=== PATIENT | female | born 1935 | race Caucasian/White ===

== ENCOUNTER → 2017-06-08 | Outpatient (CLI) | payer MEDICARE, OTHER ==
[~2017-06-08] MED LIST: ASPI81TA94 PO; CIPR-214 PO; DOCU-416 PO; FAMO20TA28 PO; FLUT16SP19 NS; HYDR-317 PO; HYDR-389 PO; IBUP-1671 PO; LISI20TA29 PO; METO-257 PO; METO25TA93 PO; NYST15CR32 TP; OSPE60TA2 PO; PANT40TA65 PO; PNEU0.5D3 IM; POLY17PO25 PO; TRI40I INTRA-ART
--- NOTE | 2017-06-08 09:39 | RADIOLOGY IMAGING REPORT ---
FACILITY: [facility] PATIENT NAME: Erin Montiel : 1935 MR: [id number] V: [id number] EXAM DATE: ORDERING PHYSICIAN: ELLI FARRELL TECHNOLOGIST: Location: [facility] - [place] Patient: Erin Montiel : 1935 Visit/Account:[id number] Date of Sevice: 06/08/2017 HEAD W/O CONTRAST Indication: headache Comparison: None. Technique: Noncontrast head CT vertex to the skull base obtained. One of the following dose optimizat ion techniques was utilized in the performance of this exam: automated exposure control; adjustment o f the mA and/or kV according to the patient's size; or use of an iterative reconstruction technique. Specific details can be referenced in the facility's radiology CT exam operational policy. Findings: Brain: Dawn-white matter differentiation and cortex are maintained. Confluent areas of decreased att enuation are seen throughout the white matter consistent with small vessel ischemic change. Ventricles and sulci: Ventricles and sulci are symmetrically prominent. There is no abnormal extra-a xial fluid collection. Paranasal sinuses:Visualized paranasal sinuses and mastoid air cells are clear. Calvarium:Bones of the skull and skull base are intact. Orbits and soft tissues: Right and left globes and soft tissues of the head are normal. Impression: 1. No evidence of infarct hemorrhage mass or fracture. 2. Age-related cerebral volume loss and small vessel ischemic change. Report Dictated By: Surjit Rod at 06/08/2017 9:31 AM Report E-Signed By: Surjit Rod at 06/08/2017 9:33 AM WSN:[email or web address]
[2017-06-08 09:45] LABS: PLATELET COUNT, AUTOMATED 249 K/uL (150-450)
== END ==
LOC: RAD 08:38
PROVIDERS: ATTEND Internal Medicine
DX: R51 Headache (principal); I10 Essential (primary) hypertension; E78.5 Hyperlipidemia, unspecified; R49.0 Dysphonia
CPT/HCPCS: 36415; 70450; 82040; 82247; 82310; 82374; 82435; 82565; 82947; 84075; 84132; 84155; 84295; 84443; 84450; 84460; 84520; 85025

== ENCOUNTER → 2017-06-22 | Outpatient (CLI) | payer MEDICARE, OTHER ==
--- NOTE | 2017-06-22 11:44 | RADIOLOGY IMAGING REPORT ---
[place] [facility] [place]: Erin Montiel : 1935 MR: [id number] V: [id number] EXAM DATE: ORDERING PHYSICIAN: ELLI FARRELL TECHNOLOGIST: Location: [facility] Patient: Erin Montiel : 1935 Visit/Account:[id number] Date of Sevice: 06/22/2017 KIDNEYS EXAMINATION: Renal ultrasound. History: Flank pain x1 week abnormal kidney function, frequent urination COMPARISON STUDIES: CT of the abdomen and pelvis September 25, 2015 FINDINGS: Kidneys: Right kidney- 8.9 x 4.5 x 4.3 cm Left kidney- 11.6 x 5.8 x 3.8 cm Uniform and symmetric blood flow in each kidney by Doppler ultrasound. Hydronephrosis: none Resistive index on the right 0.7 and on the left 0.7 Bladder: Prevoid bladder volume 166 mL. Post void residual 2 mL. I lateral ureteral jets are presen t Abdominal aorta and IVC: Aorta and IVC are patent by Doppler ultrasound. IMPRESSION: Unremarkable renal ultrasound Report Dictated By: Edie Alonzo MD at 06/22/2017 11:37 AM Report E-Signed By: Edie Alonzo MD at 06/22/2017 11:40 AM WSN:[email or web address]
== END ==
LOC: US 00:46
PROVIDERS: ATTEND Internal Medicine
DX: I10 Essential (primary) hypertension (principal); N28.9 Disorder of kidney and ureter, unspecified
CPT/HCPCS: 76705

== ENCOUNTER → 2017-08-24 | Outpatient (CLI) | payer MEDICARE, OTHER ==
[~2017-08-24] MED LIST changes: +DIPH-740 PO; +LEVO25TA61 PO; +PRED-420 PO; +RANI-366 PO
[2017-08-24 13:36] LABS: PLATELET COUNT, AUTOMATED 227 K/uL (150-450)
== END ==
LOC: LAB 13:02
PROVIDERS: ATTEND Internal Medicine
DX: I12.9 Hypertensive chronic kidney disease with stage 1 through stage 4 chronic kidney disease, or unspecified chronic kidney disease (principal); N18.3 Chronic kidney disease, stage 3 (moderate); E78.5 Hyperlipidemia, unspecified
CPT/HCPCS: 36415; 82040; 82247; 82310; 82374; 82435; 82465; 82565; 82947; 83718; 84075; 84132; 84155; 84295; 84443; 84450; 84460; 84478; 84520; 85025

== ENCOUNTER → 2017-09-13 | Outpatient (CLI) | payer MEDICARE, OTHER ==
[~2017-09-13] MED LIST changes: +HYDR-385 PO
[2017-09-13 10:40] LABS: PLATELET COUNT, AUTOMATED 238 K/uL (150-450)
== END ==
LOC: LAB 10:13
PROVIDERS: ATTEND Internal Medicine
DX: I12.9 Hypertensive chronic kidney disease with stage 1 through stage 4 chronic kidney disease, or unspecified chronic kidney disease (principal); N18.9 Chronic kidney disease, unspecified; N20.0 Calculus of kidney; N39.0 Urinary tract infection, site not specified
CPT/HCPCS: 36415; 81001; 82040; 82247; 82310; 82374; 82435; 82565; 82947; 84075; 84132; 84155; 84295; 84443; 84450; 84460; 84520; 85025

== ENCOUNTER → 2017-09-19 | Outpatient (CLI) | payer MEDICARE, OTHER ==
--- NOTE | 2017-09-19 13:17 | RADIOLOGY IMAGING REPORT ---
FACILITY: [facility] - [place] PATIENT NAME: Erin Montiel : 1935 MR: [id number] V: [id number] EXAM DATE: ORDERING PHYSICIAN: ELLI FARRELL TECHNOLOGIST: Location: [facility] - [place] Patient: Erin Montiel : 1935 Visit/Account:[id number] Date of Sevice: 09/19/2017 L SPINE W/O CONTRAST Provided history: L2 compression fracture Additional pertinent history: none TECHNIQUE: Multiplanar multisequence lumbar MRI was performed without intravenous contrast. COMPARISON STUDIES: No relevant priors FINDINGS: Segment numbering: Lumbosacral junction at L5-S1. No transitional segment. Extra-spinal soft tissues: Benign-appearing cyst medial midpole left kidney. Alignment: Normal Osseous signal pattern: Indistinct T2 hyperintensity parallels the upper L2 endplate with a central l inear hypointense line typical of a benign insufficiency fracture. Maximal compression is up to just over 20%. There is only minimal retropulsion of the posterior-superior L2 body without compromise o f the canal. Both sides of the fracture extends to the body and pedicle junction but there is no pro pagating fracture through the posterior elements. Additional indistinct T2 hyperintensity in the lower L3 or upper L4 body is probably degenerative in origin rather than due to acute compression. Distal thoracic cord / conus / cauda equina: negative Disc Spaces: Lower T spine: Mild degeneration without herniation or significant stenosis. L1-L2: The disk reveals mild narrowing and degeneration. No evidence of disk herniation or centra l stenosis No significant foraminal stenosis. L2-L3: There is an intravertebral herniation in the posterior-inferior L2 endplate but with preserva tion of adjacent marrow, likely old. Superimposed is a moderate size more right lateralizing disk-os teophyte complex that overall results in mild narrowing the central canal and conjunction with hypert rophy of the posterior elements. The foramina are only mildly narrowed by lateralizing osteophytes and mild facet hypertrophy. L3-L4: The disk reveals severe narrowing and degeneration. There is a prominent broad-based mo re left lateralizing disk-osteophyte complex. In conjunction with moderate hypertrophy of the chiropractor assistant ior elements, this results in severe compromise of the central canal with near extinguishing of CSF a t the level the disc. Lateralization of end-plate spurs and bilateral facet hypertrophy results in severe left and only mil d narrowing of the right foramen. The exiting left L3 nerve is displaced and deformed. L4-L5: The disk reveals moderate narrowing and degeneration. Mild symmetric broad based disc- osteophyte complex without herniation or significant central stenosis. Lateralization of end-plate spurs and bilateral facet hypertrophy results in mild narrowing of the fo ramina. L5-S1: The disk reveals moderate narrowing and degeneration. Mild symmetric broad based disc- osteophyte complex without herniation or central stenosis. Hypertrophic facets primarily responsible for displacement and deformity of both exiting L5 nerves ag ainst the inferior pedicles consistent with moderate- severe foraminal narrowing. IMPRESSION: 1. Acute 20% compression deformity of the L2 body with only minor retropulsion no compromise of the canal. 2. Multilevel degenerative changes are defined above. 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 3. Additional potentially significant bilateral L5-S1 foraminal narrowing. Report Dictated By: Santiago Cuba MD at 09/19/2017 1:01 PM Report E-Signed By: Santiago Cuba MD at 09/19/2017 1:13 PM WSN:[id number]
== END ==
LOC: MRI 02:03
PROVIDERS: ATTEND Internal Medicine
DX: M51.36 Other intervertebral disc degeneration, lumbar region (principal); M48.061 Spinal stenosis, lumbar region without neurogenic claudication
CPT/HCPCS: 72148

== ENCOUNTER 2017-09-25 01:42 | Day surgery (SDC) | payer MEDICARE, OTHER ==
[~2017-09-25] VITALS: Ht 160 cm; Wt 83.0 kg
[~2017-09-25 01:42] MED LIST changes: +ceFAZolin(*) 1 GM VIAL 1 GM in NS(*) 0.9% 100 ML ADDVANT BAG 100 ML IVPB ONE
--- NOTE | 2017-09-25 07:36 | EKG ---
FACILITY: [facility] PATIENT NAME: HALEY PRADHAN : [id number] MR: [id number] V: [id number] EXAM DATE: ORDERING PHYSICIAN: PERFECTO DELACRUZ TECHNOLOGIST: MOLLY Pérez Reason : PRE-OP Blood Pressure : / mmHG Vent. Rate : 067 BPM Atrial Rate : 067 BPM P-R Int : 142 ms QRS Dur : 072 ms QT Int : 400 ms P-R-T Axes : 059 027 024 degrees QTc Int : 422 ms Normal sinus rhythm Normal ECG No previous ECGs available Confirmed by KAMERON GREWAL ([id number]) on 09/25/2017 1:11:02 PM Referred By: MOHIT Confirmed By:KAMERON GREWAL
[2017-09-25 07:40] VITALS: BP 168/78
[2017-09-25] MEDS ORDERED: FAMOTIDINE 20 MG TAB PO ONE (07:40)
[2017-09-25] MEDS ORDERED: PROPOFOL EMUL(*) 10MG/ML 20 ML 20 ML ONE (07:46)
[2017-09-25] MEDS ORDERED: fentaNYL CITR 100 MCG/2 ML AMP ONE (07:46)
[2017-09-25] MEDS ORDERED: LIDOCAINE 2% IV 100 MG/5ML SYR ONE (07:46)
[2017-09-25] MEDS ORDERED: MIDAZOLAM 2 MG/2 ML VIAL IVP PRN (07:55)
[2017-09-25] MEDS ORDERED: NORMOSOL R SOLN(*) 1000 ML BAG 1,000 ML IV PRN (07:55)
[2017-09-25] MEDS ORDERED: ceFAZolin(*) 1 GM VIAL 1 GM in NS(*) 0.9% 100 ML ADDVANT BAG 100 ML IVPB ONE (07:55)
[2017-09-25] MEDS ORDERED: LIDOCAINE/SOD BICARB 8.4% SYR ID ONE (07:55)
[2017-09-25] MEDS ORDERED: HYDROCORTISONE 1% CR 28.35 GM TP ONE (08:51)
[2017-09-25] MEDS ORDERED: IOPAMIDOL-200 50 ML VIAL IS ONE (08:51)
[2017-09-25] MEDS ORDERED: ONDANSETRON 4 MG/2 ML VIAL ONE (09:30)
[2017-09-25] MEDS ORDERED: ePHEDrine 25 MG/5 ML DISP.SYR IVP ONE (09:30)
[2017-09-25] MEDS ORDERED: DEXAMETHASONE SOD 4 MG/ML VIAL ONE (09:30)
--- NOTE | 2017-09-25 10:35 | RADIOLOGY IMAGING REPORT ---
FACILITY: [facility] [place] PATIENT NAME: Erin Montiel : 1935 MR: [id number] V: [id number] EXAM DATE: ORDERING PHYSICIAN: CHAGO RUEDA TECHNOLOGIST: Location: [facility] Patient: Erin Montiel : 1935 Visit/Account:[id number] Date of Sevice: 09/25/2017 Exam type: RETROGRADE PYELOGRAM History: HEMATURIA, stent placement Comparison: September 28, 2015. Findings: Eight intraoperative fluoroscopic spot views the abdomen pelvis were submitted. The total prostate b e time was 0.8 minutes. Fluoroscopy dose was 6.26 mGray. Contrast is seen in the nondilated right r enal collecting system and right ureter. No definite intraluminal filling defects are identified. A right ureteral stent was placed. IMPRESSION: 1. As above Report Dictated By: Edie Alonzo MD at 09/25/2017 10:29 AM Report E-Signed By: Edie Alonzo MD at 09/25/2017 10:31 AM WSN:[email or web address]
[2017-09-25] MEDS ORDERED: HYDR-4309 PO (10:45)
[2017-09-25] MEDS ORDERED: PHEN200T32 PO (10:46)
[2017-09-25] MEDS ORDERED: CEPH250C37 PO (10:54)
[2017-09-25 11:16] VITALS: BP 158/78
[2017-09-25 11:22] VITALS: BP 165/84
[2017-09-25 11:23] VITALS: BP 160/83
--- NOTE | 2017-09-25 12:11 | OPERATIVE REPORT 1 ---
EVENT DATE: September 25, 2017 SURGEON: Brad Hawk MD ANESTHESIOLOGIST: Tray Lester MD ANESTHESIA: General PREOPERATIVE DIAGNOSES 1. Chronic right sided pain with radiation to the right groin area and more severe the past two to three weeks. 2. Right ureterolithiasis. POSTOPERATIVE DIAGNOSES 1. Chronic right sided pain with radiation to the right groin area and more severe the past two to three weeks. 2. Right ureterolithiasis. PROCEDURE PERFORMED 1. Cystourethroscopy. 2. Right ureteral pyelograms. 3. Right ureteral stent placement 6 Montserratian x 26 cm Percuflex Plus. 4. Hydrodistention of the bladder. DESCRIPTION OF PROCEDURE Under general anesthetic, the patient was prepped and draped in the extended lithotomy position. The 21 panendoscope admitted through the urethra into the bladder. The bladder showed 3+ trabeculation. Trigone and ureteral orifices were normal. No bloody efflux from either orifice. She had a mild inflammatory urethritis, minimal pseudomembranous trigonitis. We had reasonably good support of the bladder. Bladder filled under gravity flow was measured to a total of 800 mL. On drainage of the bladder, there was no bloody drainage. On reinspection of the bladder, there were no glomerulations. The right ureteropyelograms were obtained. After placement of the ten cone tip in the distal right ureter, contrast was introduced. Retrograde ureteropyelograms showed no gross filling defects in my opinion. The ureter was relatively delicate. The collecting system appeared to drain fairly freely. The access catheter was placed, and there seemed to be some resistance, approximately mid urethra sitting cephalad. A guide wire was placed, 0.038. The 6 Montserratian x 26 cm Percuflex Plus was passed up into the right collecting system. There was full curl in the bladder and the kidney as evidenced on x-ray visually. Bladder was drained. Scope was withdrawn. The patient tolerated the procedure satisfactorily and returned to the Recovery Room in satisfactory condition. INDICATION FOR PROCEDURE This is an 82-year-old white female complaining of chronic right flank pain. Patient had acute onset of more right-sided pain that radiates into the right groin area. CT IVP shows probable right ureterolithiasis. X-rays were reviewed with Dr. Alonzo, and she was agreeable that the ureter probably contains a right ureteral stone. Patient and her were so advised. Recommendations were made as to options as to spontaneous passage versus stenting and/or manipulation. That has been accomplished, see operative note for details. DISCHARGE INSTRUCTIONS Patient followup this coming Monday in the hospital to reevaluate and perform ureterorenoscopy to evaluate for any right ureterolithiasis. Patient and seem to understand and are agreeable to followup. Patient will be discharged home when alert and functional, to force fluids, 12 glasses of water per day. Activities are as tolerated. She is to continue her usual medications. Copy of instructions were given to the patient. Patient is strain all of her urine. She was sent home with strainers. Copy of the explanation as to expectations from the indwelling right ureteral stent was given to the patient. SLOAN
== END 2017-09-25 11:16 | disposition home or self-care (01) ==
LOC: OR 01:42
DX: N20.1 Calculus of ureter (principal); R10.31 Right lower quadrant pain; E66.9 Obesity, unspecified; E03.9 Hypothyroidism, unspecified; I10 Essential (primary) hypertension; E78.5 Hyperlipidemia, unspecified; K21.9 Gastro-esophageal reflux disease without esophagitis; Z98.1 Arthrodesis status; Z68.32 Body mass index [BMI] 32.0-32.9, adult
CPT/HCPCS: 52332; 74420; 81001; 87088; 93005; A9270; C1758; C1769; C1894; C2617; J0690; J1100; J2001; J2405; J2704; J3010; J7050; Q9966

== ENCOUNTER 2017-10-02 00:10 | Day surgery (SDC) | payer MEDICARE, OTHER ==
[2017-10-02] VITALS (8 sets, daily range): BP systolic 128–187; BP diastolic 61–90
[~2017-10-02] VITALS: Ht 160 cm; Wt 82.1 kg
[~2017-10-02 00:10] MED LIST changes: +CEPH250C37 PO; +HYDR-4309 PO; +PHEN200T32 PO; -ceFAZolin(*) 1 GM VIAL 1 GM in NS(*) 0.9% 100 ML ADDVANT BAG 100 ML IVPB ONE
[2017-10-02] MEDS ORDERED: FAMOTIDINE 20 MG TAB PO ONE (06:05)
[2017-10-02] MEDS ORDERED: MIDAZOLAM 2 MG/2 ML VIAL IVP PRN (06:30)
[2017-10-02] MEDS ORDERED: LIDOCAINE/SOD BICARB 8.4% SYR ID ONE (06:30)
[2017-10-02] MEDS ORDERED: NORMOSOL R SOLN(*) 1000 ML BAG 1,000 ML IV PRN (06:30)
[2017-10-02] MEDS ORDERED: ceFAZolin(*) 1 GM VIAL 1 GM in NS(*) 0.9% 100 ML ADDVANT BAG 100 ML IVPB ONE (06:30)
--- NOTE | 2017-10-02 06:36 | RADIOLOGY IMAGING REPORT ---
FACILITY: [facility] PATIENT NAME: Erin Montiel : 1935 MR: [id number] V: [id number] EXAM DATE: ORDERING PHYSICIAN: CHAGO RUEDA TECHNOLOGIST: Location: [place] [facility] - [place] Patient: Erin Montiel : 1935 Visit/Account:[id number] Date of Sevice: 10/02/2017 KUB SINGLE VIEW ABDOMEN HISTORY: Kidney stones. Preop. COMPARISON: Retrograde pyelogram 09/25/2017. FINDINGS: Supine views of the abdomen were obtained. There is a right ureteral stent. No visible calculi pubis along the course of the stent or at either renal fossa. There are pelvic phleboliths. There are surgical clips in the right upper quadrant from cholecystectomy. Distrubution of bowel gas is normal with bowel in all four quadrants as well as centrally. No dilated bowel loops. No free air. There is moderate to severe degenerative change of the lumbar spine, and m ild to moderate degenerative change of the visible thoracic spine. IMPRESSION: 1. Right ureteral stent is in expected location. 2. No convincing renal or ureteral calculus. 3. Pelvic phleboliths. Report Dictated By: Amy Flood at 10/02/2017 6:30 AM Report E-Signed By: Amy Flood at 10/02/2017 6:33 AM WSN:[id number]
[2017-10-02] MEDS ORDERED: fentaNYL CITR 100 MCG/2 ML AMP ONE ×2 (07:03→08:00)
[2017-10-02] MEDS ORDERED: LIDOCAINE 2% IV 100 MG/5ML SYR ONE (07:04)
[2017-10-02] MEDS ORDERED: PROPOFOL EMUL(*) 10MG/ML 20 ML 20 ML ONE (07:05)
[2017-10-02] MEDS ORDERED: IOPAMIDOL-200 50 ML VIAL IS ONE (07:27)
[2017-10-02] MEDS ORDERED: HYDROCORTISONE 1% CR 28.35 GM TP ONE (07:27)
[2017-10-02] MEDS ORDERED: ONDANSETRON 4 MG/2 ML VIAL ONE (07:49)
[2017-10-02] MEDS ORDERED: DEXAMETHASONE SOD 4 MG/ML VIAL ONE (07:49)
[2017-10-02] MEDS ORDERED: ePHEDrine 25 MG/5 ML DISP.SYR IVP ONE (07:51)
[2017-10-02] MEDS ORDERED: KETOROLAC 30 MG/ML VIAL ONE (08:21)
--- NOTE | 2017-10-02 09:51 | RADIOLOGY IMAGING REPORT ---
FACILITY: [facility] - [place] PATIENT NAME: Erin Montiel : 1935 MR: [id number] V: [id number] EXAM DATE: ORDERING PHYSICIAN: CHAGO RUEDA TECHNOLOGIST: Location: [facility] - [place] Patient: Erin Montiel : 1935 Visit/Account:[id number] Date of Sevice: 10/02/2017 OR fluoroscopy films: Abdomen History: Stones, right stent Comparison: 09/25 2017 Findings: Fluoroscopy and imaging was provided for Dr. Rueda. 0.1 minutes of fluoroscopy time was ut ilized. 6 images of the abdomen and pelvis are archived to PACS which demonstrate right cystoscopy i n progress.. IMPRESSION: Fluoroscopy and imaging provided for Dr. Rueda please see his report for details. Report Dictated By: Sera Newberry MD at 10/02/2017 9:46 AM Report E-Signed By: Sera Nweberry MD at 10/02/2017 9:48 AM WSN:[email or web address]
[2017-10-02] MEDS ORDERED: HYDR-4309 PO (10:04)
[2017-10-02] MEDS ORDERED: FAMO20TA28 PO (10:05)
[2017-10-02] MEDS ORDERED: CEPH500T7 PO (10:06)
--- NOTE | 2017-10-02 10:24 | OPERATIVE REPORT 1 ---
EVENT DATE: October 02, 2017 SURGEON: Brad Hawk MD ANESTHESIOLOGIST: Tray Lester MD ANESTHESIA: General anesthetic. PREOPERATIVE DIAGNOSIS Possible right ureteral lithiasis. POSTOPERATIVE DIAGNOSIS No evidence of ureteral and/or renal lithiasis. PROCEDURES PERFORMED 1. Cystourethroscopy. 2. Right ureteral stent removal. 3. Right ureterorenoscopy with a semi-rigid scope. 4. Right ureterorenoscopy with flexible ureteroscope. DESCRIPTION OF PROCEDURE Under general anesthetic, the patient was prepped and draped in the extended lithotomy position. The 21 panendoscope admitted through the urethra into the bladder. No stones were visible in the bladder. The right ureteral stent was removed. Again, visualization of the bladder showed no evidence of ureterolithiasis. Semi-rigid scope passed up the right collecting system to approximately the mid upper ureter. My clinical impression I was unable to safely negotiate further than that. Descending that area showed no evidence of ureterolithiasis. The guidewire was placed. The flexible ureterorenoscope passed over the flexible guidewire without difficulty into the right kidney. The stent was removed. Exploration of the collecting system in the kidney showed no evidence of renal lithiasis. Again, on descending the entire ureter, no stone was visualized. The flexible ureterorenoscope was removed. The 21 panendoscope was reintroduced. Again, no stones were visible in the bladder. The bladder was drained. The scope was withdrawn. Patient tolerated the procedure satisfactorily and returned to the recovery room in satisfactory condition. This 82-year-old white female is complaining of right flank pain. CT IVP showed a possible right ureteral stone seen by radiologist in [place], [place], and was confirmed by Dr. Krueger here as a possible mid ureterolithiasis. Patient has a history of chronic right-sided pain. Multiple workups have shown no abnormality. She had workup in 2016 by sd, and retrogrades were normal at that time. A urine culture was negative. The patient has had a previous bladder suspension by Dr. Dasilva. She subsequently had stent evaluation with x-rays and stent placement approximately a week ago. She is in followup for reevaluation and therapy. See operative note for details. No stones have been found. Patient will be ready for discharge home when alert and functional. Force fluids, 12 glasses of water per day. Activities are as tolerated. She is to strain all her urine. She is to percuss her right kidney frequently to facility passage of stone particles. She is to continue her usual medications. A copy of instructions was given to the patient. She was discharged home on Keflex, Pepcid, and [place] therapy. Plan followup in the [place] [facility] this coming Monday. SLOAN
[2017-10-02] MEDS ORDERED: APAP/HYDROCODONE 325/5 TAB ONE (11:16)
[2017-10-03] MEDS ORDERED: CIPR-214 PO (19:05)
== END 2017-10-02 09:20 | disposition home or self-care (01) ==
LOC: OR 00:10
DX: M54.9 Dorsalgia, unspecified (principal)
CPT/HCPCS: 52351; 74018; 76000; A9270; C1769; C1894; J0690; J1100; J1885; J2001; J2405; J2704; J3010; J7050; Q9966

== ENCOUNTER 2017-10-03 16:58 | Emergency (ER) | payer MEDICARE, OTHER ==
[~2017-10-03 16:58] MED LIST changes: +CEPH500T7 PO
--- NOTE | 2017-10-03 17:04 | ER Report ---
History and Physical Time Seen By MD: 17:00 HPI/ROS CHIEF COMPLAINT: RLQ pain and chills HISTORY OF PRESENT ILLNESS: PT sent in for evaluation of chills with RLQ pain. Pt was seen in [place] after a fall and had a CT 09/04/2017 which showed a compression fx and a calcification whihc appeared to be in the R ureter 4mm but without hydroneprhosis or hydroureter. Pt was found to have that same location of a calcification back onCT 06/20/2014. Pt followed up with Urology , Dr. Rueda , due to continued rlq pain and on 09/25 had retrograde pyelogram and stent placement. Yesterday pt had cystoscopy which did not show a stone and stent was removed. Pt denies dysuria, frequency or hematuria at this time. Pt states still with RLQ pain. no fevers. Pt called Dr. Rueda and was directed to the emergency room. Pt denies n/v/d. Pt is concerned that it could be her appendix and would like a repeat CT. Will start with blood/urine work. REVIEW OF SYSTEMS: Constitutional: No fever, + chills. Eyes: No discharge. ENT: No sore throat. Cardiovascular: No chest pain, no palpitations. Respiratory: No cough, no shortness of breath. Gastrointestinal: + abdominal pain, no vomiting. Genitourinary: No hematuria. Musculoskeletal: No back pain. Skin: No rashes. Neurological: No headache. Allergies: Coded Allergies: Sulfa (Sulfonamide Antibiotics) (Verified Allergy, Unknown, rash, 10/03/17) shellfish derived (Verified Allergy, Unknown, nausea, 10/03/17) Uncoded Allergies: dairy (Adverse Reaction, Severe, GI DISTRESS, 09/25/15) Home Meds Active Scripts Levothyroxine Sodium (LEVOTHYROXINE SODIUM) 25 Mcg Tablet, 25 MCG PO QDAY, #30 TAB 5 Refills Prov:ELLI FARRELL MD 08/25/17 Fluticasone Prop 50 Mcg Ns (FLONASE 50 MCG NS) 16 Gm [place].susp, 2 SPRAYS NS QDAY, #1 BOT 3 Refills Prov:ELLI FARRELL MD 06/08/17 Pantoprazole Sodium (PANTOPRAZOLE SODIUM) 40 Mg Tablet.dr, 40 MG PO QDAY, #90 TAB.SR 3 Refills Prov:ELLI FARRELL MD 01/10/17 Metoprolol Tartrate (METOPROLOL TARTRATE) 100 Mg Tablet, 1 TAB PO BID, #180 TAB 3 Refills Prov:ELLI FARRELL MD 01/10/17 Reported Medications Cephalexin 500 Mg Tab (KEFLEX 500 MG TAB) 500 Mg Tablet, 500 MG PO TID, #30 TAB 10/02/17 Hydrocodone Bit/Acetaminophen (NORCO 5-325 TABLET) 1 Each Tablet, 1 EACH PO Q6H Y for PAIN, #20 TAB 10/02/17 Aspirin (ASPIRIN) 81 Mg Tab.chew, 81 MG PO QDAY, TAB.CHEW 09/25/15 Discontinued Reported Medications Famotidine (PEPCID) 20 Mg Tablet, 20 MG PO BID, #20 TAB 10/02/17 Cephalexin (KEFLEX) 250 Mg Capsule, 500 MG PO TID, #40 CAPSULE TAKE ONE TABLE THREE TIMES A DAY FOR 2 DAYS, THEN TAKE TWICE DAILY THERE AFTER. 09/25/17 Hydrocodone Bit/Acetaminophen (NORCO 5-325 TABLET) 1 Each Tablet, 1 EACH PO Q6H Y for PAIN, #20 TAB 09/25/17 Phenazopyridine Hcl (PHENAZOPYRIDINE HCL) 200 Mg Tablet, 200 MG PO TID Y for BURNING WITH URINATION, #30 TAB 09/25/17 Discontinued Scripts Lisinopril (LISINOPRIL) 20 Mg Tablet, 1 TAB PO BID, #180 TAB 3 Refills Prov:ELLI FARRELL MD 01/10/17 Diphenhydramine Hcl (BENADRYL) 25 Mg Capsule, 25 MG PO Q6H Y for RASH, #30 CAPSULE Prov:ELLI FARRELL MD 08/24/17 Past Medical/Surgical History Pmhx: htn, constipation Pshx: cystoscopy, hyster, ta, spinal surgery C-spine, j luis Reviewed Nurses Notes: Yes Old Medical Records Reviewed: Yes Hx Smoking: No Smoking Status: Never Smoker Exposure to Second Hand Smoke?: No Hx Alcohol Use: No Constitutional Vital Sign - Last 24 Hours 10/03/17 17:07 Temp 98.5 Pulse 85 Resp 18 B/P (MAP) 170/82 Pulse Ox 93 O2 Delivery Room Air Intake and Output 10/03/17 10/03/17 10/04/17 15:00 23:00 07:00 Output Total 100 ml Balance -100 ml Physical Exam General Appearance: The patient is alert, has no immediate need for airway protection and no signs of toxicity. Eyes: Pupils equal and round no pallor or injection, EOMI ENT: no pharyngeal erythema or exudates, Mucous membranes are moist Respiratory: There are no retractions, lungs are clear to auscultation. Cardiovascular: Regular rate and rhythm. pulses are equal and symmetrical Gastrointestinal: Abdomen is soft with mild tenderness rlq, no masses, bowel sounds normal, no guarding, no rigidity or rebound Neurological: Cranial nerves II-XII grossly intact, no sensory or motor loss Skin: Warm and dry, no rashes Muscleskeletal: no cva tenerness, Extremities are nontender, non swollen and have full range of motion. DIFFERENTIAL DIAGNOSIS: After history and physical exam differential diagnosis was considered for pyelonephritis, uti, appy, chronic pain Medical Decision Making Data Points Result Diagram: 10/03/17 1720 10/03/17 1720 Laboratory Hematology Test 10/03/17 17:20 Red Blood Count 3.77 M/uL (4.17-5.56) Mean Corpuscular Volume 94.7 fL (80.0-96.0) Mean Corpuscular Hemoglobin 32.2 pg (26.0-33.0) Mean Corpuscular Hemoglobin Concent 34.0 g/dL (32.0-36.0) Red Cell Distribution Width 14.5 % (11.5-14.5) Mean Platelet Volume 8.0 fL (7.2-11.1) Neutrophils (%) (Auto) 76.8 % (39.4-72.5) Lymphocytes (%) (Auto) 12.7 % (17.6-49.6) Monocytes (%) (Auto) 8.8 % (4.1-12.4) Eosinophils (%) (Auto) 1.2 % (0.4-6.7) Basophils (%) (Auto) 0.5 % (0.3-1.4) Nucleated RBC Relative Count (auto) 0.0 /100WBC Neutrophils # (Auto) 11.2 K/uL (2.0-7.4) Lymphocytes # (Auto) 1.9 K/uL (1.3-3.6) Monocytes # (Auto) 1.3 K/uL (0.3-1.0) Eosinophils # (Auto) 0.2 K/uL (0.0-0.5) Basophils # (Auto) 0.1 K/uL (0.0-0.1) Nucleated RBC Absolute Count (auto) 0.00 K/uL Urine Color Yellow Urine Clarity Clear Urine pH 5.0 pH (4.8-9.5) Urine Specific [place] 1.012 Urine Protein Negative mg/dL (NEGATIVE) Urine Glucose (UA) Negative mg/dL (NEGATIVE) Urine Ketones Negative mg/dL (NEGATIVE) Urine Blood Small (NEGATIVE) Urine Nitrite Negative (NEGATIVE) Urine Bilirubin Negative (NEGATIVE) Urine Urobilinogen Negative mg/dL (0.2-1.9) Urine Leukocyte Esterase Negative (NEGATIVE) Urine RBC 2 /HPF (0-2/HPF) Urine WBC 1 /HPF (0-5/HPF) Urine Squamous Epithelial Cells Few /LPF (NONE-FEW) Urine Bacteria Few /HPF (NONE-FEW) Urine Mucus None /HPF (NONE-FEW) Sodium Level 135 mmol/L (137-145) Potassium Level 3.5 mmol/L (3.5-5.0) Chloride Level 97 mmol/L (98-107) Carbon Dioxide Level 25 mmol/L (22-31) Blood Urea Nitrogen 19 mg/dl (7-18) Creatinine 1.60 mg/dl (0.52-1.04) Glomerular Filtration Rate Calc 30.9 Random Glucose 99 mg/dl (75-110) Calcium Level 8.3 mg/dl (8.4-10.2) Total Bilirubin 0.2 mg/dl (0.2-1.3) Aspartate Amino Transf (AST/SGOT) 21 U/L (0-35) Alanine Aminotransferase (ALT/SGPT) 22 U/L (0-56) Alkaline Phosphatase 81 U/L (0-126) Total Protein 6.7 gm/dl (6.3-8.2) Albumin 3.7 g/dl (3.5-5.0) Chemistry Test 10/03/17 17:20 White Blood Count 14.6 k/uL (4.5-11.0) Red Blood Count 3.77 M/uL (4.17-5.56) Hemoglobin 12.2 g/dL (12.0-16.0) Hematocrit 35.8 % (34.0-47.0) Mean Corpuscular Volume 94.7 fL (80.0-96.0) Mean Corpuscular Hemoglobin 32.2 pg (26.0-33.0) Mean Corpuscular Hemoglobin Concent 34.0 g/dL (32.0-36.0) Red Cell Distribution Width 14.5 % (11.5-14.5) Platelet Count 226 K/uL (150-450) Mean Platelet Volume 8.0 fL (7.2-11.1) Neutrophils (%) (Auto) 76.8 % (39.4-72.5) Lymphocytes (%) (Auto) 12.7 % (17.6-49.6) Monocytes (%) (Auto) 8.8 % (4.1-12.4) Eosinophils (%) (Auto) 1.2 % (0.4-6.7) Basophils (%) (Auto) 0.5 % (0.3-1.4) Nucleated RBC Relative Count (auto) 0.0 /100WBC Neutrophils # (Auto) 11.2 K/uL (2.0-7.4) Lymphocytes # (Auto) 1.9 K/uL (1.3-3.6) Monocytes # (Auto) 1.3 K/uL (0.3-1.0) Eosinophils # (Auto) 0.2 K/uL (0.0-0.5) Basophils # (Auto) 0.1 K/uL (0.0-0.1) Nucleated RBC Absolute Count (auto) 0.00 K/uL Urine Color Yellow Urine Clarity Clear Urine pH 5.0 pH (4.8-9.5) Urine Specific [place] 1.012 Urine Protein Negative mg/dL (NEGATIVE) Urine Glucose (UA) Negative mg/dL (NEGATIVE) Urine Ketones Negative mg/dL (NEGATIVE) Urine Blood Small (NEGATIVE) Urine Nitrite Negative (NEGATIVE) Urine Bilirubin Negative (NEGATIVE) Urine Urobilinogen Negative mg/dL (0.2-1.9) Urine Leukocyte Esterase Negative (NEGATIVE) Urine RBC 2 /HPF (0-2/HPF) Urine WBC 1 /HPF (0-5/HPF) Urine Squamous Epithelial Cells Few /LPF (NONE-FEW) Urine Bacteria Few /HPF (NONE-FEW) Urine Mucus None /HPF (NONE-FEW) Glomerular Filtration Rate Calc 30.9 Calcium Level 8.3 mg/dl (8.4-10.2) Total Bilirubin 0.2 mg/dl (0.2-1.3) Aspartate Amino Transf (AST/SGOT) 21 U/L (0-35) Alanine Aminotransferase (ALT/SGPT) 22 U/L (0-56) Alkaline Phosphatase 81 U/L (0-126) Total Protein 6.7 gm/dl (6.3-8.2) Albumin 3.7 g/dl (3.5-5.0) Urinalysis Test 10/03/17 17:20 Urine Color Yellow Urine Clarity Clear Urine pH 5.0 pH (4.8-9.5) Urine Specific [place] 1.012 Urine Protein Negative mg/dL (NEGATIVE) Urine Glucose (UA) Negative mg/dL (NEGATIVE) Urine Ketones Negative mg/dL (NEGATIVE) Urine Blood Small (NEGATIVE) Urine Nitrite Negative (NEGATIVE) Urine Bilirubin Negative (NEGATIVE) Urine Urobilinogen Negative mg/dL (0.2-1.9) Urine Leukocyte Esterase Negative (NEGATIVE) Urine RBC 2 /HPF (0-2/HPF) Urine WBC 1 /HPF (0-5/HPF) Urine Squamous Epithelial Cells Few /LPF (NONE-FEW) Urine Bacteria Few /HPF (NONE-FEW) Urine Mucus None /HPF (NONE-FEW) ED Course/Re-evaluation Clinical Indication for ER IV: IV Access ED Course Will image but unable to due with contrast due to pts GFR. 10/03/2017 6:25:[address] Rueda, reviewed pts labs and urine. Ct still pending. States if pt ct is stable pt can go home and change abx from Keflex to cipro and he will see in clinic this Monday. 10/03/2017 6:57:[address] does not show appendicitis which was a concern for the and pt. Pt does have diverticulosis and has changes consistent with recent cysto with stent removal. Pt recieved a fluid bolus for some renal insufficiency. PT has norco at home for pain control. Will change her abx as per Dr. Rueda. cultures obtained Decision to Disposition Date: Oct 03, 2017 Decision to Disposition Time: 19:00 Depart Departure Latest Vital Signs Vital Signs Date Time Temp Pulse Resp B/P (MAP) Pulse Ox O2 Delivery O2 Flow Rate FiO2 10/03/17 17:07 98.5 85 18 170/82 93 Room Air Impression: Primary Impression: Abdominal pain Additional Impressions: Status post cystoscopy History of renal stent Condition: Improved Disposition: HOME OR SELF-CARE Referrals: ELLI FARRELL MD (PCP) CHAGO RUEDA MD 2 Days New Scripts Ciprofloxacin Hcl (CIPROFLOXACIN HCL) 500 Mg Tablet 500 MG PO Q12H, #14 TAB Prov: MALIK CHILDERS DO 10/03/17 Patient Instructions: Abdominal Pain (ED) Additional Instructions: We sent your urine and blood off for culture, if bacteria grows we will call you. We spoke with and he would like you to change your antibiotic from Keflex to Cipro. Cipro is twice a day. Start tomorrow morning. Keep your appointment with Dr. Rueda this Monday. If you have any concerns call Dr. Rueda or return to the emergency room. Problem Qualifiers Primary Impression: Abdominal pain Abdominal location: right lower quadrant Qualified Codes: R10.31 - Right lower quadrant pain MALIK CHILDERS DO Oct 03, 2017 17:04
[2017-10-03 17:39] LABS: PLATELET COUNT, AUTOMATED 226 K/uL (150-450)
[2017-10-03] MEDS ORDERED: NS(*) 0.9% 500 ML BAG 500 ML IV ONE (18:15)
--- NOTE | 2017-10-03 18:54 | RADIOLOGY IMAGING REPORT ---
FACILITY: [facility] PATIENT NAME: Erin Montiel : 1935 MR: [id number] V: [id number] EXAM DATE: ORDERING PHYSICIAN: MALIK CHILDERS TECHNOLOGIST: Location: [facility] Patient: Erin Montiel : 1935 Visit/Account:[id number] Date of Sevice: 10/03/2017 ABDOMEN/PELVIS W/O CONTRAST History: 82-year-old male with right flank pain. Patient status post removal of a right ureteral sten t and cystoscopy yesterday. Technique: CT images were obtained through the abdomen and pelvis without the injection of intravenou s contrast. Coronal and sagittal reformations were then created. One of the following dose optimization techniques was utilized in the performance of this exam: Autom ated exposure control; adjustment of the mA and/or kV according to the patient's size; or use of an i terative reconstruction technique. Specific details can be referenced in the facility's radiology C T exam operational policy. Comparison study:None Findings: Lung bases: There is mild bibasilar scarring. The heart is enlarged. There is coronary calcification. There is a small hiatal hernia Hepatobiliary: There is no finding of a liver mass on this noncontrast study. Surgical clips are note d in the gallbladder fossa related to prior cholecystectomy. Spleen: Negative. Adrenals: Negative Pancreas: Negative. Kidneys/genitourinary/retroperitoneum: The left kidney is unremarkable. The right kidney shows mild h ydronephrosis and hydroureter extending all the way to the bladder. There is prominent periureteral a nd perinephric inflammatory change. This may be related to trauma from removal of the right internal nephroureteral stent however. There are no findings of a ureteral calculus and there is no definitive mass producing obstruction. There is no retroperitoneal or pelvic lymphadenopathy. Bowel/peritoneum/mesentery: There is a normal appendix in the right lower quadrant. There is divertic ulosis of the sigmoid and left colon but there are no findings of diverticulitis. There are no dilate d loops of large or small bowel. Pelvic/genital urinary: The uterus and ovaries are not seen. Correlation with past gynecologic histor y recommended. There is no calculus in the bladder. There is no inguinal hernia. Vessels: There is atherosclerotic change involving the aorta and iliac vessels. Lymph node: Negative. Body wall/bones: There is an L2 vertebral body compression fracture that is chronic. IMPRESSION: 1. This patient's right-sided pain is likely related to residual hydronephrosis and hydroureter with inflammatory change secondary to recent removal of an internal nephroureteral stent. There is no find ing of a ureteral calculus or obstructing mass. 2. The appendix is normal. 3. Diverticulosis without diverticulitis. 4. Status post remote cholecystectomy. Status post prior gynecologic surgery not otherwise specified. Results were called to MALIK CHILDERS M.D. At 10/03/2017 6:50 PM. Report Dictated By: Campbell Muñoz MD at 10/03/2017 6:42 PM Report E-Signed By: Campbell Muñoz MD at 10/03/2017 6:50 PM WSN:[id number]
[2017-10-03] MEDS ORDERED: CIPROFLOXACIN 500 MG TAB PO ONE (18:55)
[2017-10-03 19:00] VITALS: BP 144/75
[2017-10-03] MEDS ORDERED: CIPR-214 PO (19:05)
== END 2017-10-03 19:19 | disposition home or self-care (01) ==
LOC: ER 17:00
DX: R10.31 Right lower quadrant pain (principal); K57.30 Diverticulosis of large intestine without perforation or abscess without bleeding; N13.30 Unspecified hydronephrosis; N13.4 Hydroureter; Z90.49 Acquired absence of other specified parts of digestive tract
CPT/HCPCS: 36415; 74176; 81001; 85025; 87040; 87088; 99284; A4353; A9270; J7040; 82040; 82247; 82310; 82374; 82435; 82565; 82947; 84075; 84132; 84155; 84295; 84450; 84460; 84520

== ENCOUNTER → 2018-02-12 | Outpatient (CLI) | payer MEDICARE, OTHER ==
[~2018-02-12] MED LIST changes: -HYDR-4309 PO; +HYDR-653 PO
[2018-02-12 09:23] LABS: PLATELET COUNT, AUTOMATED 236 K/uL (150-450)
== END ==
LOC: LAB 09:02
PROVIDERS: ATTEND Internal Medicine
DX: N13.30 Unspecified hydronephrosis (principal); I10 Essential (primary) hypertension
CPT/HCPCS: 36415; 81001; 82040; 82247; 82310; 82374; 82435; 82565; 82947; 84075; 84132; 84155; 84295; 84443; 84450; 84460; 84520; 85025

== ENCOUNTER → 2018-02-14 | Outpatient (CLI) | payer MEDICARE, OTHER ==
--- NOTE | 2018-02-14 15:33 | RADIOLOGY IMAGING REPORT ---
FACILITY: [facility] [place] PATIENT NAME: Erin Montiel : 1935 MR: [id number] V: [id number] EXAM DATE: ORDERING PHYSICIAN: CHAGO RUEDA TECHNOLOGIST: Location: [facility] [place] Patient: Erin Montiel : 1935 Visit/Account:[id number] Date of Sevice: 02/14/2018 ABDOMEN/PELVIS W/O CONTRAST HISTORY: Pelvic pain, kidney stones TECHNIQUE: Axial images acquired through the abdomen/pelvis. Coronal and sagittal reformatting also performed. No IV contrast administered.Dose Lowering Technique One of the following dose optimization techniques was utilized in the performance of this exam: Autom ated exposure control; adjustment of the mA and/or kV according to the patient's size; or use of an i terative reconstruction technique. Specific details can be referenced in the facility's radiology C T exam operational policy. COMPARISON: October 03, 2017 FINDINGS: Visualized lung bases: Mild by basilar scarring. Pleural-based calcifications seen along the avp ior medial aspect of the right lower thorax. There are coronary artery calcifications Hepatobiliary: Postsurgical changes from a cholecystectomy Spleen: Negative. Adrenals: Mild thickening the adrenal glands similar to the prior study Pancreas: Negative. Kidneys ureters and bladder: Duplication of left renal collecting system. There is no demonstration of urolithiasis, hydronephrosis or hydroureter . Bladder is decompressed therefore not ideally eval uated Genitalia: Hysterectomy GI: There is a small hiatal hernia. There is diffuse colonic diverticulosis most prominent left-sided colon although no CT evidence of ac pippa diverticulitis. The appendix is visualized and does not appear inflamed Vessels/spaces/nodes: There is severe atherosclerotic calcifications seen throughout the abdomen and pelvis. Includes moderate narrowing at the origins of the renal arteries . Bones/soft tissues: Tiny umbilical hernia containing fat.. Extensive spondylotic changes of the lum bar spine. There appears to be slight worsening of the previously noted compression fracture involvi ng the superior endplate of L2 Additional findings: None pertinent. IMPRESSION: No demonstration of urolithiasis, hydronephrosis or hydroureter Mild by basilar parenchymal scarring with pleural-based calcifications along the posterior medial asp ect right lower thorax, similar to the prior study Slight interval worsening of the previously noted compression fracture involving the super endplate o f L2 Additional chronic findings as described Report Dictated By: Edie Alonzo MD at 02/14/2018 3:19 PM Report E-Signed By: Edie Alonzo MD at 02/14/2018 3:29 PM LEELAN:JAYDA
== END ==
LOC: CT 07:06
DX: N20.1 Calculus of ureter (principal); R10.9 Unspecified abdominal pain
CPT/HCPCS: 74176